=== PATIENT | male | born 1955 | race Caucasian/White ===

== ENCOUNTER → 2020-06-28 14:33 | Outpatient (BNVA) | payer OTHER, SELFPAY | PROVIDERS: Family Provider Family Medicine; Visit Provider Family Medicine | DX: Z20.828 Contact with and (suspected) exposure to other viral communicable diseases (principal) | CPT/HCPCS: 87635 ==

== ENCOUNTER 2021-08-09 14:19 | Outpatient (CLI) | payer OTHER, SELFPAY ==
--- NOTE | 2021-08-09 14:27 | MR_ITS ---
WS: [id number] MRI HEAD WITH CONTRAST WITH ATTENTION TO THE INTERNAL AUDITORY CANALS TECHNIQUE: Sagittal T1, T2 axial, T2 axial flair, axial susceptibility weighted imaging, axial diffus ion weighted images, and coronal T2 images were obtained. Pre and post T1 axial and post T1 coronal i mages. ADC and FSPGR images. Post gadolinium images with attention to the internal auditory canals. A xial fiesta imaging. CLINICAL INFORMATION: SENSORINEURAL HEARING LOSS COMPARISON: CT 2018 FINDINGS: No evidence of restricted diffusion to suggest acute ischemia. Ventricular system and basal cisterns are patent. Mild small vessel changes with moderate parenchymal volume loss. Normal posterior fossa. A few tiny chronic lacunar infarcts in the cerebellum. Normal vascular flow voids at the skull base. No extra-axial fluid collections. No evidence of mass or mass effect. Paranasal sinuses and mastoid air cells well aerated. No hemosiderin on the susceptibly weighted imag es. Proximal 7th and 8th cranial nerves are normal in appearance. Normal trigeminal nerve root entry zones. No evidence of enhancing IAC or CP angle mass. Normal optic chiasm and pituitary infundibulum. Normal cavernous sinuses and Meckel's cave. No abnormal gadolinium enhancement. Normal dural venous sinuses . MR/MR iac's wo/w con* [id number] IMPRESSION: 1. No evidence of restricted diffusion to suggest acute ischemia. 2. No evidence of enhancing IAC or CP angle mass. Normal trigeminal nerve root entry zones. 3. Mastoid air cells are well aerated. Paranasal sinuses are well aerated. 4. Mild small vessel changes with moderate parenchymal volume loss. 5. No hemosiderin on susceptibly weighted images.
== END 2021-08-09 14:20 | disposition home or self-care (01) ==
PROVIDERS: Visit Provider Otolaryngology
DX: H90.3 Sensorineural hearing loss, bilateral (principal); H93.13 Tinnitus, bilateral
CPT/HCPCS: 70553; A9579

== ENCOUNTER 2022-07-11 08:23 | Outpatient (CLI) | payer OTHER, MEDICARE, SELFPAY ==
--- NOTE | 2022-07-11 08:41 | XRR_ITS ---
PROCEDURE INFORMATION: Exam: XR Chest Exam date and time: 07/11/2022 8:52 AM Age: 67 years old Clinical indication: Dyspnea TECHNIQUE: Imaging protocol: Radiologic exam of the chest. Views: 2 views. COMPARISON: CR XR chest 1V [id number] 08/26/2018 3:33 AM FINDINGS: Lungs: Unremarkable. No consolidation. Pleural spaces: Elevation of the right hemidiaphragm. No pleural effusion. No pneumothorax. Heart/Mediastinum: Unremarkable. No cardiomegaly. Bones/joints: Unremarkable. XR/XR chest 2V* [id number] IMPRESSION: No acute findings.
== END 2022-07-11 08:24 | disposition home or self-care (01) ==
LOC: RAD 08:27
PROVIDERS: PCP Family Medicine; Visit Provider Family Medicine
DX: R06.00 Dyspnea, unspecified (principal); E34.9 Endocrine disorder, unspecified; I48.91 Unspecified atrial fibrillation; R51.9 Headache, unspecified
CPT/HCPCS: 71046; 80053; 80061; 84443; 85025; 86140

== ENCOUNTER → 2022-08-08 14:09 | Outpatient (BNVA) | payer OTHER, MEDICARE, SELFPAY | PROVIDERS: PCP Family Medicine; Visit Provider Family Medicine | DX: R73.9 Hyperglycemia, unspecified (principal); R79.82 Elevated C-reactive protein (CRP); E66.9 Obesity, unspecified | CPT/HCPCS: 80048; 83036; 86140 ==

== ENCOUNTER → 2023-06-01 10:08 | Outpatient (BNVA) | payer OTHER, MEDICARE, SELFPAY | PROVIDERS: PCP Family Medicine; Visit Provider Family Medicine | DX: R79.82 Elevated C-reactive protein (CRP) (principal); R51.9 Headache, unspecified; R53.1 Weakness; I95.9 Hypotension, unspecified | CPT/HCPCS: 80053; 83735; 83880; 84443; 85025; 86140 ==

== ENCOUNTER 2023-06-09 17:42 | Emergency (ER) | payer OTHER, MEDICARE, SELFPAY ==
[2023-06-09 17:51] VITALS: BP 111/74; PULSE 95; RESP 16; TEMP 36.8; O2SAT 96; BMI 38.0
--- NOTE | 2023-06-09 18:06 | ECG_ITS ---
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 Measurements Intervals [place] Rate: 77 P: 39 VT: 154 QRS: 15 QRSD: 134 T: 47 QT: 402 QTc: 458 Interpretive Statements SINUS RHYTHM WITH SINUS ARRHYTHMIA INDETERMINATE AXIS RIGHT BUNDLE BRANCH BLOCK [120+ ms QRS DURATION, UPRIGHT V1, 40+ ms S IN I/aVL/V4/V5/V6] Compared to ECG 08/26/2018 02:54:17 Right bundle-branch block now present Atrial fibrillation no longer present Aberrant conduction of supraventricular beat(s) no longer present Ventricular premature complex(es) no longer present Incomplete right bundle-branch block no longer present ST (T wave) deviation no longer present Electronically Signed On 06-10-2023 10:56:01 CDT by Tomás Cerda M.D. [id number]
[2023-06-09 18:33] VITALS: BP 119/69; PULSE 74; RESP 16; O2SAT 98
[2023-06-09] MEDS: ondansetron 2 mg/ML SDV 2 mL 4 MG IVP (19:02)
[2023-06-09] MEDS: ketorolac 30 mg/mL INJ 15 MG IVP (19:06)
[2023-06-09 19:11] LABS: Basophils % 0.3 %; Eosinophils % 0.4 %; Hematocrit 43.4 % (37-53); Lymphocytes # 1.4 10^3/uL (0.8-4.8); Lymphocytes % 20.1 %; Mean Corpuscular HGB Conc 33.4 g/dL (30-55); Mean Corpuscular Hemoglobin 30.5 pg (27-33); Mean Corpuscular Volume 91.2 fl (82-101); Mean Platelet Volume 9.9 fL (7.4-10.4); Monocytes # 0.3 10^3/uL (0.2-0.9); Monocytes % 4.4 %; Neutrophils # 5.24 10^3/uL (1.8-7.7); Neutrophils % 74.4 %; Nucleated Red Blood Cells % 0 %; Platelet Count 220 10^3/cmm (157-399); Red Blood Count 4.76 10^6/uL (3.85-5.65); Red Cell Distribution Width 13.8 % (12.1-15.1); White Blood Count 7.05 10^3/uL (3.29-11.43)
[2023-06-09] MEDS: diphenhydrAMINE 50 mg/mL SDV 1mL 25 MG IVP (19:12)
[2023-06-09] MEDS: sodium chloride 0.9% 1,000 ML 999 ML IV (19:22)
[2023-06-09 19:25] LABS: Alanine Aminotransferase 11 U/L (0-41); Alkaline Phosphatase 86 U/L (40-130); Anion Gap 13.5 (5-19); Aspartate Amino Transferase 11 U/L (0-40); Blood Urea Nitrogen 12 mg/dL (8-23); Calcium 9.3 mg/dL (8.5-10.5); Carbon Dioxide 25 mmol/L (22-29); Chloride 103 mmol/L (98-107); Creatine Phosphokinase 52 U/L (39-308); Globulin 2.5 g/dL (1.3-4.6); Glomerular Filtration Rate 112.5 mL/min (90-130); Glucose 109 mg/dL (65-115); Osmolality Calculated 286 mOsm/kg (285-295); Potassium 3.5 mmol/L (3.5-5.1); Sodium 138 mmol/L (136-145); Total Bilirubin 0.7 mg/dL (0.15-1.2); Total Protein 6.5 g/dL (6.6-8.7)
[2023-06-09] MEDS: dexamethasone 4 mg/mL INJ 8 MG IVP (19:30)
--- NOTE | 2023-06-09 20:10 | ED_ITS ---
HPI - Skin/Abscess/Foreign Bdy General: Chief complaint: Skin/Abscess/Foreign Body Stated complaint: wasp stings Time Seen by Provider: 06/09/23 18:12 Source: patient History of Present Illness: 68-year-old male with a history of atrial fibrillation. He presents with what sounds like a near syncopal episode after being stung by several yellow jackets. He was brought hogging, and got into a yellowjacket nest. He was stung several times in the right upper extremity. He began to feel faint shortly thereafter, and laid on the ground before he fell. He was mildly nauseated. No throat tightness, or chest pain. No facial swelling. He remembers feeling significantly hot and itchy over different parts of his body. Most of his symptoms are gone. He is still mildly nauseated. He has significant swelling to his right upper extremity, particularly of the hand. MD complaint: rash and insect bite/sting Onset (ago): hour(s) Location: RUE Severity: moderate Quality: burning, stabbing, aching and pruritic Associated symptoms: Reports nausea; Deny chills, fever(s) or vomiting Review of Systems Const: Denies: fever(s) or chills Eyes: Denies: change in vision ENMT: Denies: throat pain, uvular edema, odynophagia or hoarseness Card: Denies: chest pain or palpitations Resp: Denies: dyspnea, productive cough or non-productive cough GI: Reports: nausea; Denies: abdominal pain or vomiting Skin/Breast: Reports: rash, pruritus and erythema PFS ED PFSH: Medical History Atrial fibrillation Dyspnea Headache Hypotestosteronemia Obesity Physical Exam Const: COMMON NORMALS: no acute distress GENERAL APPEARANCE: cooperative; not ill appearing and not frail appearing HENMT: COMMON NORMALS: normocephalic, atraumatic and Normal external nose present HEAD & SCALP: normocephalic and atraumatic FACE & SINUS: normal facial exam and face symmetric NOSE: Normal external nose present THROAT: no uvular edema Eye: COMMON NORMALS: Equal, round and reactive pupils present and EOMs intact bilaterally PUPIL: Yes Equal, round and reactive pupils present Neck/C-Spine: GENERAL: Yes trachea midline Chest: CHEST: Yes Symmetrical chest wall rise Resp: COMMON NORMALS: normal respiratory effort, No retractions, No use of accessory muscles and clear to auscultation bilaterally AUSCULTATION: clear to auscultation bilaterally Cardio: COMMON NORMALS: regular rate and regular rhythm RATE: regular rate RHYTHM: regular rhythm GI: COMMON NORMALS: Normal to inspection, nondistended, normoactive bowel sounds present Extremity: NARRATIVE EXTREMITY EXAM: Examination of the right upper extremity reveals significant redness, swelling to the right dorsum of the hand. There is warmth as well. A couple of sting valle are noted. He has some swelling proximally to the dorsum of the forearm a s well. No signs of compartment syndrome. Pulses are intact. Neuro: FAUZIA COMA SCALE: document GCS findings Fauzia coma scale eye opening: Spontaneous [place] coma scale verbal response: Orientated [place] coma scale motor response: Obey commands [place] coma scale total score: 15 SENSORY EXAM: Yes extremities (intact) Psych: COMMON NORMALS: speech normal SPEECH: Yes normal speech Skin: COMMON NORMALS: no rashes or lesions noted GENERAL SKIN EXAM: no rashes or lesions noted Course Vital Signs: Vital signs: Vital Signs Temperature 98.2 F 06/09/23 17:51 Pulse Rate 74 06/09/23 18:33 Respiratory Rate 16 06/09/23 18:33 Blood Pressure 119/69 06/09/23 18:33 Pulse Oximetry 98 06/09/23 18:33 Oxygen Delivery Me thod Room Air 06/09/23 18:33 MDM - Skin/Abscess/Foreign Bdy Medicial Decision Making Patient's vitals are stable. He is given Benadryl, dexamethasone, Zofran, and fluid. He is feeling somewhat better. CBC and BMP are normal. CK is 52. Liver enzymes are normal. He will be allowed home. His , who is an ICU nurse, notes that he frequently gets cellulitis with these types of injuries. He will be placed on doxycycline if redness does not improve in the next 24 hours. Lab Data 06/09/23 18:57 06/09/23 18:57 Laboratory Results WBC 7.05 10^3/uL (3.29-11.43) 06/09/23 18:57 RBC 4.76 10^6/uL (3.85-5.65) 06/09/23 18:57 Hgb 14.50 g/dL (11.27-16.99) 06/09/23 18:57 Hct 43.4 % (37-53) 06/09/23 18:57 MCV 91.2 fl (82-101) 06/09/23 18:57 MCH 30.5 pg (27-33) 06/09/23 18:57 MCHC 33.4 g/dL (30-55) 06/09/23 18:57 RDW 13.8 % (12.1-15.1) 06/09/23 18:57 Plt Count 220 10^3/cmm (157-399) 06/09/23 18:57 MPV 9.9 fL (7.4-10.4) 06/09/23 18:57 Neut % (Auto) 74.4 % 06/09/23 18:57 Lymph % (Auto) 20.1 % 06/09/23 18:57 [place] % (Auto) 4.4 % 06/09/23 18:57 Eos % (Auto) 0.4 % 06/09/23 18:57 Baso % (Auto) 0.3 % 06/09/23 18:57 Neut # (Auto) 5.24 10^3/uL (1.8-7.7) 06/09/23 18:57 Lymph # (Auto) 1.4 10^3/uL (0.8-4.8) 06/09/23 18:57 [place] # (Auto) 0.3 10^3/uL (0.2-0.9) 06/09/23 18:57 Eos # (Auto) 0.0 10^3/uL (0.0-0.8) 06/09/23 18:57 Baso # (Auto) 0.0 10^3/uL (0.0-0.1) 06/09/23 18:57 Nucleated RBC % (auto) 0 % 06/09/23 18:57 Nucleated RBCs # 0.0 /100WBC 06/09/23 18:57 Sodium 138 mmol/L (136-145) 06/09/23 18:57 Potassium 3.5 mmol/L (3.5-5.1) 06/09/23 18:57 Chloride 103 mmol/L (98-107) 06/09/23 18:57 Carbon Dioxide 25 mmol/L (22-29) 06/09/23 18:57 Anion Gap 13.5 (5-19) 06/09/23 18:57 BUN 12 mg/dL (8-23) 06/09/23 18:57 Creatinine 0.7 mg/dL (0.7-1.2) 06/09/23 18:57 GFR Calculation 112.5 mL/min (90-130) 06/09/23 18:57 Glucose 109 mg/dL (65-115) 06/09/23 18:57 Calculated Osmolality 286 mOsm/kg (285-295) 06/09/23 18:57 Calcium 9.3 mg/dL (8.5-10.5) 06/09/23 18:57 Total Bilirubin 0.7 mg/dL (0.15-1.2) 06/09/23 18:57 AST 11 U/L (0-40) 06/09/23 18:57 ALT 11 U/L (0-41) 06/09/23 18:57 Alkaline Phosphatase 86 U/L (40-130) 06/09/23 18:57 Creatine Kinase 52 U/L (39-308) 06/09/23 18:57 Total Protein 6.5 g/dL (6.6-8.7) L 06/09/23 18:57 Albumin 4.0 g/dL (3.5-5.2) 06/09/23 18:57 Globulin 2.5 g/dL (1.3-4.6) 06/09/23 18:57 Discharge Plan Discharge Patient Disposition: Home Clinical Impression: Allergic reaction to insect sting Condition: Stable Prescriptions: New doxycycline hyclate 100 mg tablet 100 mg PO BID 7 Days Qty: 14 0RF No Action diltiazem HCl 30 mg tablet 30 mg PO BID Qty: 60 11RF sertraline 100 mg tablet See Rx Instructions .ROUTE .COMPLEX Qty: 60 0RF Dose Instruction: TAKE 2 TABLETS BY MOUTH EVERY DAY Rx Instructions: TAKE 2 TABLETS BY MOUTH EVERY DAY tadalafil [Cialis] 10 mg tablet 10 mg PO .Q3days PRN (Reason: sexual activity) Qty: 30 11RF Discharge Orders: Discharge ED (Routine); Ordered 06/09/23 Ordered By: Peter Mata Referrals: Domingo Mcclure MD [Primary Care Provider] - 1-3 days Patient Instructions: Insect Bite or Sting (ED), General Allergic Reaction (ED) Activity Restrictions/Additional Instructions: Return for worsening redness, swelling, etc. despite treatment. Watch for fever. Return also for shortness of breath, symptoms of throat closing or hoarseness, other concerning symptoms. Fill your antibiotic if redness does not begin to improve in 24 to 48 hours. Follow-up with your doctor. Coding Level of Care Code ED Display Fabrication Supervisor for Stacy Stanley
== END 2023-06-09 20:33 | disposition home or self-care (01) ==
PROVIDERS: Emergency Provider Emergency Medicine; PCP Family Medicine
DX: T63.461A Toxic effect of venom of wasps, accidental (unintentional), initial encounter (principal)
CPT/HCPCS: 36415; 80053; 82550; 85025; 93005; 96361; 96374; 96375; 99284; J1100; J1200; J1885; J2405; J7030

== ENCOUNTER 2023-11-25 18:14 | Observation (INO) | payer MEDICARE, SELFPAY ==
[2023-11-25] VITALS (68 sets, daily range): BP systolic 100–131; BP diastolic 61–89; PULSE 67–104; RESP 12–27; TEMP 36.4–36.7; O2SAT 88–100; BMI 36.3
--- NOTE | 2023-11-25 18:18 | ECG_ITS ---
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 Measurements Intervals [place] Rate: 174 P: 0 SC: 0 QRS: -77 QRSD: 143 T: 38 QT: 278 QTc: 474 Interpretive Statements ATRIAL FIBRILLATION WITH RAPID VENTRICULAR RESPONSE INDETERMINATE AXIS RIGHT BUNDLE BRANCH BLOCK [120+ ms QRS DURATION, UPRIGHT V1, 40+ ms S IN I/aVL/V4/V5/V6] LEFT ANTERIOR FASCICULAR BLOCK [QRS AXIS <= -45, QR IN I, RS IN II] CRITICAL TEST RESULT INTERPRETATION BASED ON A DEFAULT AGE OF 40 YEARS Compared to ECG 06/09/2023 18:06:04 Left anterior fascicular block now present Sinus rhythm no longer present Sinus arrhythmia no longer present Electronically Signed On 11-25-2023 21:00:15 HOOP RIVETER by Ana Rosa Eastman M.D. [id number]
--- NOTE | 2023-11-25 18:25 | XRR_ITS ---
PROCEDURE INFORMATION: Exam: XR Chest Exam date and time: 11/25/2023 6:59 PM Age: 68 years old Clinical indication: Chest pressure; Patient HX: Chest pain left jaw/shoulder pain; Tachycardia; Afib TECHNIQUE: Imaging protocol: Radiologic exam of the chest. Views: 1 view. COMPARISON: CR XR chest 2V* [id number] 07/11/2022 8:52 AM FINDINGS: Lungs: Subtle streaky opacities at left lung base near the costophrenic sulcus. Pleural spaces: No pleural effusion. No pneumothorax. Heart/Mediastinum: Mild tortuosity of the descending thoracic aorta. Otherwise cardiomediastinal silhouette. Bones/joints: No acute osseous abnormality. XR/XR chest 1V portable [id number] IMPRESSION: Subtle streaky opacities at left lung base near the costophrenic sulcus , indeterminate for atelectasis versus focus of infection/inflammation.
[2023-11-25] MEDS: sodium chloride 0.9% 1,000 ML 999 ML IV (18:47)
[2023-11-25] MEDS: dilTIAZem 5 mg/mL SDV 5 mL 10 MG IVP (18:50)
[2023-11-25 18:53] LABS: Basophils # 0.1 10^3/uL (0.0-0.1); Basophils % 0.6 %; Eosinophils # 0.1 10^3/uL (0.0-0.8); Eosinophils % 0.7 %; Hematocrit 45.2 % (37-53); Lymphocytes % 18.6 %; Mean Corpuscular Hemoglobin 30.5 pg (27-33); Mean Corpuscular Volume 92.4 fl (82-101); Mean Platelet Volume 9.7 fL (7.4-10.4); Monocytes # 0.5 10^3/uL (0.2-0.9); Monocytes % 4.8 %; Neutrophils % 74.9 %; Nucleated Red Blood Cells % 0 %; Platelet Count 217 10^3/cmm (157-399); Red Blood Count 4.89 10^6/uL (3.85-5.65); Red Cell Distribution Width 13.6 % (12.1-15.1); White Blood Count 10.66 10^3/uL (3.29-11.43)
[2023-11-25 19:22] LABS: Troponin(5th) Baseline 11 ng/L (0-15)
[2023-11-25 19:23] LABS: INR 0.99 (0.8-1.2)
[2023-11-25 19:24] LABS: Partial Thromboplastin Time 29.8 SECONDS (23.9-36.7)
[2023-11-25 19:27] LABS: D Dimer 0.41 ug/mLFEU (0-0.59)
[2023-11-25 19:30] LABS: Alanine Aminotransferase 18 U/L (0-41); Albumin Level 4.2 g/dL (3.5-5.2); Alkaline Phosphatase 106 U/L (40-130); Anion Gap 14.7 (5-19); Aspartate Amino Transferase 13 U/L (0-40); Blood Urea Nitrogen 25 mg/dL (8-23); Calcium 9.5 mg/dL (8.5-10.5); Carbon Dioxide 22 mmol/L (22-29); Chloride 101 mmol/L (98-107); Creatine Phosphokinase 106 U/L (39-308); Creatinine Clr Calc Pharmacy 127.5812; Globulin 2.3 g/dL (1.3-4.6); Glomerular Filtration Rate 96.4 mL/min (90-130); Glucose 106 mg/dL (65-115); NT Pro B Type Natriuretic Pept 85 pg/mL (0-125); Osmolality Calculated 283 mOsm/kg (285-295); Potassium 3.7 mmol/L (3.5-5.1); Sodium 134 mmol/L (136-145); Thyroid Stimulating Hormone 1.82 uIU/mL (0.27-4.20); Total Bilirubin 0.6 mg/dL (0.15-1.2); Total Protein 6.5 g/dL (6.6-8.7)
--- NOTE | 2023-11-25 19:47 | PC.NURSE ---
pt ambulated with a steady gait, he did c/o some dizziness directly after standby by resolved after about a minute. provider notified
--- NOTE | 2023-11-25 20:20 | ECG_ITS ---
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 Measurements Intervals [place] Rate: 83 P: 40 ID: 132 QRS: 11 QRSD: 149 T: 42 QT: 396 QTc: 468 Interpretive Statements SINUS RHYTHM INDETERMINATE AXIS RIGHT BUNDLE BRANCH BLOCK [120+ ms QRS DURATION, UPRIGHT V1, 40+ ms S IN I/aVL/V4/V5/V6] Compared to ECG 11/25/2023 18:18:15 Atrial fibrillation no longer present Left anterior fascicular block no longer present Electronically Signed On 11-27-2023 0:45:21 RIDE MECHANIC by Ana Rosa Eastman M.D. [id number]
[2023-11-25 20:22] LABS: Add Urine Microscopic? YES; Bilirubin Urine Neg (Negative); Blood Urine 2+ (Negative); Glucose Urine UA Norm (Normal); Ketones Urine 1+ (Negative); Leukocyte Esterase Urine Negative (Negative); Nitrate Urine Negative (Negative); Protein Urine Trace (Negative); Specific Gravity, Urine 1.025 (1.005-1.030); Urine Appearance Clear (CLEAR); Urine Color Yellow (Yellow); Urobilinogen Urine Neg (Negative); pH Urine 5 (5-7)
[2023-11-25] MEDS: dilTIAZem 100 MG in sodium chloride 0.9% (add-van) 100 ML IV (20:22)
[2023-11-25 20:23] LABS: Bacteria Urine 1+ /hpf; Coarse Granular Casts Urine 0-4 /lpf; Hyaline Casts Urine 0-4 /lpf; Squamous Epithelial Cell Urine 0-4 /hpf (0-5); WBC Urine 0-4 /hpf (0-5)
[2023-11-25] MEDS: sodium chloride 0.9% 1,000 ML 150 ML IV (20:23)
--- NOTE | 2023-11-25 20:57 | PC.NURSE ---
After pt had returned from his walk, he was laying in the bed for approx 10min and had a run of afib with rvr in the 140's. Provider reported to the bond underwriter that pt will have to stay with a cardizem drip at 5mg/hr and not to give the previously ordered bolus. Pt is upset about needing to be admitted as he had plans to ride his motorcycle tomorrow but is compliant, is also ok with this plan. Drip started and pt is tolerating well, bp is soft so vitals are taking frequently and pt being watched closely.
[2023-11-25 21:15] LABS: Troponin 5 2HR 17.35 ng/L (0-15); Troponin 5 2HR Delta 6.35 ABS# (0-10)
--- NOTE | 2023-11-25 22:56 | P.HP_ITS ---
Providers/Chief Complaint 2 Admitting Physician: Rob Strong DO Primary Care Provider: Domingo Mcclure MD Chief Complaint: cp, jaw, left shoulder pain, dizzy History of Present Illness Leno Schroeder is a 68 year old male paroxysmal atrial fibrillation who has not tolerated calcium channel blockade. His blood pressure becomes too low and he develops symptoms. He has been off any diltiazem for approximately 3 months. He is a tried long-acting diltiazem and short acting and is still symptomatic. Today the patient was working on his property and had to wrangle a goat back to the stable with much physical exertion. When he came into the house his who is an RN in our ICU reports that he was diaphoretic. Patient complained of left jaw and left arm pain. He denies shortness of breath or nausea. His gave him diltiazem 30 mg x 1 and he came to the hospital. In the emergency room he was still in atrial fibs with RVR. He was placed on low-dose Cardizem drip at 5 mg an hour and subsequently converted back to normal sinus rhythm. His troponins are 11 and 17 at 2 hours with a delta of 7. And otherwise his laboratory studies are within normal limits, including a TSH. Reviewed with patient there is does seem to be relationship for when the patient is on a stimulant to induce the A-fib. In the past it happened after energy drinks and now he is recently started caffeine. And he is smoking a pack and half of cigarettes a day which she just picked up a few years ago again Review of Systems 2 Const: Reports: change in weight (Intentional weight loss of 90 pounds over the last year or 2); Denies: fever(s) or chills Eyes: Denies: change in vision ENMT: Denies: throat pain or nasal congestion Card: Reports: palpitations (He is cognizant of his PVCs even.) and irregular heart rhythm; Denies: chest pain Resp: Denies: dyspnea or productive cough GI: Denies: abdominal pain, nausea, vomiting or change in stool character : Denies: difficulty urinating or dysuria Musc: Denies: back pain or extremity pain Skin/Breast: Denies: rash or lesions Neuro: Denies: headache(s) or dizziness Psych: Denies: anxiety or depression Justin/Lymph: Denies: easy bruising or easy bleeding Medications/Allergies Home Medications Medication Instructions Recorded Confirmed Last Taken Type diltiazem HCl 30 mg tablet 30 mg PO BID #60 tabs 01/16/23 11/18/23 Unknown Rx tadalafil 10 mg tablet (Cialis) 10 mg PO .Q3days PRN sexual 04/11/23 11/18/23 Unknown Rx activity #30 tabs sertraline 100 mg tablet See Rx Instructions .Route 10/11/23 11/18/23 Unknown Rx .COMPLEX #60 tabs Allergies Allergy/AdvReac Type Severity Reaction Status Date / Time brown recluse spiders Allergy ALGY-Redness Uncoded 11/25/23 18:26 of Skin PFSH Acute 2 PFSH: Medical History Obesity Dyspnea Headache Hypotestosteronemia Atrial fibrillation Social History Smoking and tobacco/nicotine status: current every day tobacco/nicotine user Quit status (tobacco/nicotine): considering quitting Second hand smoke exposure: Yes Household members: spouse Housing: House Vitals/I&O/Wt Last Vital Signs Temp 98.0 F 11/25/23 18:23 Pulse 76 11/25/23 22:00 Resp 20 H 11/25/23 22:00 BP 113/64 11/25/23 22:00 Pulse Ox 92 11/25/23 22:00 O2 Del Method Nasal Cannula 11/25/23 22:00 O2 Flow Rate 3 11/25/23 22:00 11/25/23 11/25/23 11/25/23 06:59 14:59 22:59 Intake Total 1000 / 1000 Balance 1000 / 1000 Weight last 48 hrs Weight 128.367 kg Physical Exam 2 Narrative: Tall obese white male in no acute distress at time. He appears well-nourished and well-hydrated. Neuro. AO to PP TS. Nonfocal exam HEENT: NC/AT. PERRLA/EOMI. Mucous membranes are moist and a bit erythematous. Poor dentition in the lower jaw upper dentures present Neck: Supple no JVD carotid bruits or lymphadenopathy Heart: Regular rate and rhythm distant heart sounds no obvious murmur auscultated Lungs: Diminished breath sounds with prolonged expiration no wheezing even with forced expiratory breaths Abdomen obese soft nontender nondistended positive bowel sounds no hepatosplenomegaly Extremities: No clubbing cyanosis or edema Psych: Mood and affect appropriate Skin: No rash or lesions Back no obvious scoliosis or kyphosis Data 11/25/23 18:35 11/25/23 18:35 EKG 1: My Interpretation: A-fib with RVR right bundle branch block EKG computer-generated impression: Same EKG 2: My Interpretation: Normal sinus rhythm no further atrial fibrillation. R BBB EKG computer-generated impression: Same A&P Assessment and plan (1) Atrial fibrillation with rapid ventricular response: (2) Paroxysmal atrial fibrillation: (3) Obesity: Qualifiers: Obesity type: due to excess calories Obesity classification: adult class 2 (BMI 35 - 39.9) Serious obesity comorbidity presence: unspecified whether serious comorbidity present Body mass index: BMI 36.0-36.9 Qualified Code(s): E66.09 - Other obesity due to excess calories; Z68.36 - Body mass index [BMI] 36.0-36.9, adult (4) Smoker: (5) Anginal equivalent: Plan * Patient will be placed in observation tonight. Since the patient has already cardioverted plans for discharge will be initiated. * The low-dose Cardizem drip will be discontinued in the director of outside sales hours. * Much consideration has been given to the course of action at this time.. Patient clearly cannot tolerate calcium channel blockers and therefore will not tolerate beta-blockade. I felt the best course of action would either be starting digoxin or amiodarone. 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 We discussed those toxicities with significant bradycardia being a concern. Amiodarone is also an option however amiodarone's toxicities can be permanent. We decided together to try digoxin at this point. * It is also of utmost importance to proceed with a stress test in a controlled environment. There is concerned that basically patient failed a stress test today with him displaying anginal equivalent symptoms with exertion. The patient's would prefer utilizing Dr. Cerda and he will be back on December 02. * Patient and have been educated not on exertion subsequent to discharge. This includes no wrangling goats no motorcycle riding and no excessive Caffeine or Exercise or Sexual Activity. * Patient and have been counseled to quit smoking. Both of them have had a scare tonight and patient himself is very likely to quit smoking after this. The was strongly encouraged to join him in this endeavor. He has been able to quit smoking for extended periods of times in the past and it is believed that he will be able to do so again. * Check 6-hour troponin if elevated will need to keep in the hospital and perform stress test in house. Attestations 2 Medical Necessity Statement*: At this time patient will be admitted under observation and will not require 2 midnight stay as above. Coding Level of Care Code Acute Code for g Fwd Diagnoses Atrial fibrillation with rapid ventricular response I48.91 Paroxysmal atrial fibrillation I48.0 Class 2 obesity due to excess calories with body mass index (BMI) of 36.0 to 36.9 in adult, unspecified whether serious comorbidity present E66.09; Z68.36 Obesity type: due to excess calories Obesity classification: adult class 2 (BMI 35 - 39.9) Serious obesity comorbidity presence: unspecified whether serious comorbidity present Body mass index: BMI 36.0-36.9 Smoker F17.200 Anginal equivalent I20.89
[2023-11-25] MEDS: enoxaparin 40 mg/0.4 mL Syringe SUBCUT (23:41)
[2023-11-25] MEDS: sodium chloride 0.9% 1,000 ML 75 ML IV (23:42)
[2023-11-26] VITALS (89 sets, daily range): BP systolic 81–136; BP diastolic 45–95; PULSE 54–84; RESP 14–28; TEMP 36.6; O2SAT 80–100
[2023-11-26 01:19] LABS: Troponin 5 6HR 15.87 ng/L (0-15); Troponin 5 6HR Delta 4.87 ng/L (0-12)
--- NOTE | 2023-11-26 04:04 | ED_ITS ---
HPI - Chest Pain 2 General: Chief Complaint: Chest Pain Stated Complaint: cp, jaw, left shoulder pain, dizzy Time Seen by Provider: 11/25/23 18:23 History of Present Illness: 68-year-old male patient with a known hi story of atrial fibrillation. He presents with chest pain jaw pain and dizziness. He has some shortness of breath and generalized weakness as well. He was found to have a heart rate in the 170s in triage. Associated symptoms: Reports dyspnea, nausea and palpitations; Deny abdominal pain, fever(s) or vomiting Review of Systems 2 Const: Denies: fever(s) or chills ENMT: Denies: throat pain Card: Reports: chest pain, palpitations and irregular heart rhythm Resp: Reports: dyspnea; Denies: productive cough or non-productive cough GI: Reports: nausea; Denies: abdominal pain or vomiting Musc: Reports: neck pain Neuro: Reports: dizziness; Denies: headache(s) PFSH ED 2 PFSH: Medical History Obesity Dyspnea Headache Hypotestosteronemia Atrial fibrillation Social History Smoking and tobacco/nicotine status: current every day tobacco/nicotine user Quit status (tobacco/nicotine): considering quitting Second hand smoke exposure: Yes Household members: spouse Housing: House Physical Exam 2 Const: GENERAL APPEARANCE: cooperative and ill appearing (mildly); not frail appearing HENMT: COMMON NORMALS: normocephalic, atraumatic and Normal external nose present HEAD & SCALP: normocephalic and atraumatic FACE & SINUS: normal facial exam and face symmetric NOSE: Normal external nose present Eye: COMMON NORMALS: Equal, round and reactive pupils present and EOMs intact bilaterally PUPIL: Yes Equal, round and reactive pupils present Neck/C-Spine: GENERAL: Yes trachea midline Chest: CHEST: Yes Symmetrical chest wall rise Resp: COMMON NORMALS: normal respiratory effort, No retractions, No use of accessory muscles and clear to auscultation bilaterally AUSCULTATION: clear to auscultation bilaterally Cardio: RATE: tachycardic RHYTHM: abnormal rhythm irregularly irregular GI: COMMON NORMALS: Normal to inspection, nondistended, normoactive bowel sounds present Extremity: COMMON NORMALS: no pedal edema Neuro: DIO COMA SCALE: document GCS findings Dio coma scale eye opening: Spontaneous [place] coma scale verbal response: Orientated [place] coma scale motor response: Obey commands [place] coma scale total score: 15 S ENSORY EXAM: Yes extremities (intact) Psych: COMMON NORMALS: speech normal ATTITUDE: Yes calm SPEECH: Yes normal speech Skin: COMMON NORMALS: no rashes or lesions noted GENERAL SKIN EXAM: no rashes or lesions noted Course 2 Vital Signs: Vital signs: Vital Signs Temperature 97.8 F 11/26/23 10:40 Pulse Rate 61 11/26/23 10:40 Respiratory Rate 19 H 11/26/23 10:40 Blood Pressure 121/74 11/26/23 10:45 Pulse Oximetry 90 11/26/23 10:40 Oxygen Delivery Me thod Nasal Cannula 11/25/23 23:02 Oxygen Flow Rate 3 11/25/23 22:45 MDM - Chest Pain Medical Decision Making Mr. Schroeder had a rate that was somewhat controlled in the ER, but kept having spells of breaking through with heart rates in the 160s. Diltiazem was given 2 separate times. With these, we battled mild hypotension requiring fluid bolus. Finally, he was placed on a drip to better control the heart rate with maintenance fluid for bp support. CXR shows bibalisar atelectasis. BUN is 25, BMP otherwise not remarkable. BNP normal. Delta trop at 2h is 6. He will be admitted on diltiazem gtt. Hospitalist has seen the patient in the ER. Lab Data 11/25/23 18:35 11/25/23 18:35 Radiology Impressions Chest X-Ray 11/25/23 18:25 IMPRESSION: Subtle streaky opacities at left lung base near the costophrenic sulcus , indeterminate for atelectasis versus focus of infection/inflammation. Laboratory Results WBC 10.66 10^3/uL (3.29-11.43) 11/25/23 18:35 RBC 4.89 10^6/uL (3.85-5.65) 11/25/23 18:35 Hgb 14.90 g/dL (11.27-16.99) 11/25/23 18:35 Hct 45.2 % (37-53) 11/25/23 18:35 MCV 92.4 fl (82-101) 11/25/23 18:35 MCH 30.5 pg (27-33) 11/25/23 18:35 MCHC 33.0 g/dL (30-55) 11/25/23 18:35 RDW 13.6 % (12.1-15.1) 11/25/23 18:35 Plt Count 217 10^3/cmm (157-399) 11/25/23 18:35 MPV 9.7 fL (7.4-10.4) 11/25/23 18:35 Neut % (Auto) 74.9 % 11/25/23 18:35 Lymph % (Auto) 18.6 % 11/25/23 18:35 [place] % (Auto) 4.8 % 11/25/23 18:35 Eos % (Auto) 0.7 % 11/25/23 18:35 Baso % (Auto) 0.6 % 11/25/23 18:35 Neut # (Auto) 8.00 10^3/uL (1.8-7.7) H 11/25/23 18:35 Lymph # (Auto) 2.0 10^3/uL (0.8-4.8) 11/25/23 18:35 [place] # (Auto) 0.5 10^3/uL (0.2-0.9) 11/25/23 18:35 Eos # (Auto) 0.1 10^3/uL (0.0-0.8) 11/25/23 18:35 Baso # (Auto) 0.1 10^3/uL (0.0-0.1) 11/25/23 18:35 Nucleated RBC % (auto) 0 % 11/25/23 18:35 Nucleated RBCs # 0.0 /100WBC 11/25/23 18:35 PT 13.40 SECONDS (12.1-14.9) 11/25/23 18:35 INR 0.99 (0.8-1.2) 11/25/23 18:35 APTT 29.8 SECONDS (23.9-36.7) 11/25/23 18:35 D-Dimer 0.41 ug/mLFEU (0-0.59) 11/25/23 18:35 Sodium 134 mmol/L (136-145) L 11/25/23 18:35 Potassium 3.7 mmol/L (3.5-5.1) 11/25/23 18:35 Chloride 101 mmol/L (98-107) 11/25/23 18:35 Carbon Dioxide 22 mmol/L (22-29) 11/25/23 18:35 Anion Gap 14.7 (5-19) 11/25/23 18:35 BUN 25 mg/dL (8-23) H 11/25/23 18:35 Creatinine 0.8 mg/dL (0.7-1.2) 11/25/23 18:35 GFR Calculation 96.4 mL/min (90-130) 11/25/23 18:35 Glucose 106 mg/dL (65-115) 11/25/23 18:35 Calculated Osmolality 283 mOsm/kg (285-295) L 11/25/23 18:35 Calcium 9.5 mg/dL (8.5-10.5) 11/25/23 18:35 Magnesium 2.0 mg/dL (1.7-2.3) 11/25/23 18:35 Total Bilirubin 0.6 mg/dL (0.15-1.2) 11/25/23 18:35 AST 13 U/L (0-40) 11/25/23 18:35 ALT 18 U/L (0-41) 11/25/23 18:35 Alkaline Phosphatase 106 U/L (40-130) 11/25/23 18:35 Creatine Kinase 106 U/L (39-308) 11/25/23 18:35 Troponin T Baseline 11 ng/L (0-15) 11/25/23 18:35 Troponin T 120 Minute 17.35 ng/L (0-15) H 11/25/23 20:40 Delta Troponin T 6.35 ABS# (0-10) 11/25/23 20:40 NT-Pro-B Natriuret Pep 85 pg/mL (0-125) 11/25/23 18:35 Total Protein 6.5 g/dL (6.6-8.7) L 11/25/23 18:35 Albumin 4.2 g/dL (3.5-5.2) 11/25/23 18:35 Globulin 2.3 g/dL (1.3-4.6) 11/25/23 18:35 TSH 1.82 uIU/mL (0.27-4.20) 11/25/23 18:35 Urine Color Yellow (Yellow) 11/25/23 19:43 Urine Appearance Clear (CLEAR) 11/25/23 19:43 Urine pH 5 (5-7) 11/25/23 19:43 Ur Specific [place] 1.025 (1.005-1.030) 11/25/23 19:43 Urine Protein Trace (Negative) 11/25/23 19:43 Urine Glucose (UA) Norm (Normal) 11/25/23 19:43 Urine Ketones 1+ (Negative) H 11/25/23 19:43 Urine Blood 2+ (Negative) H 11/25/23 19:43 Urine Nitrate Negative (Negative) 11/25/23 19:43 Urine Bilirubin Neg (Negative) 11/25/23 19:43 Urine Urobilinogen Neg mg/dL (Negative) 11/25/23 19:43 Ur Leukocyte Esterase Negative (Negative) 11/25/23 19:43 Urine RBC 5-10 /hpf (0-2) H 11/25/23 19:43 Urine WBC 0-4 /hpf (0-5) H 11/25/23 19:43 Ur Squamous Epith Cells 0-4 /hpf (0-5) H 11/25/23 19:43 Amorphous Sediment Not Reportable 11/25/23 19:43 Urine Bacteria 1+ /hpf (NONE) H 11/25/23 19:43 Hyaline Casts 0-4 /lpf H 11/25/23 19:43 Coarse Granular Casts 0-4 /lpf H 11/25/23 19:43 All radiology interpretation(s) finalized by discharge Critical Care Time 2 Critical Care Time: Critical Care Time: Yes Total Critical Care Time: 35 Attestation: This case had a high probability of a clinically significant, sudden, or life threatening deterioration of this patient's condition which required my full and direct attention, intervention and personal management. Time is independent of any procedures performed. Discharge Plan Discharge Patient Disposition: Admitted As Inpatient Admit Provider: Rob Strong Clinical Impression: Atrial fibrillation with rapid ventricular response, Hypotension Condition: Fair Discharge Diet: Cardiac Discharge Activity: Increase activity as tolerated Coding Level of Care Code ED Sap Director for Stacy Stanley
--- NOTE | 2023-11-26 07:25 | USCV_ITS ---
Leno Schroeder Age: 68 Gender: M : 1955 Exam Date: 11/26/2023 09:07 Ordering Phys: Wood Kirkpatrick MD Technologist: [place] [facility] [place]: afib, arrythmia, chf BP: 119 / 65 HR: 0 Rhythm: Sinus Technical Quality: Adequate MEASUREMENTS (Male / Female) Normal Values 2D ECHO LV Diastolic Diameter PLAX 4.4 cm 4.2 - 5.9 / 3.9 - 5.3 cm IVS Diastolic Thickness 1.5 cm 0.6 - 1.0 / 0.6 - 0.9 cm IVS Systolic Thickness 1.7 cm LVPW Diastolic Thickness 1.3 cm 0.6 - 1.0 / 0.6 - 0.9 cm LVPW Systolic Thickness 2.2 cm LVOT Diameter 2.0 cm LV Ejection Fraction 2D Teich 62.2 % LV Ejection Fraction MOD 2C 41.0 % LV Ejection Fraction 2C AL 0.0 % LA Diameter 3.4 cm IVC Diameter 1.8 cm M-MODE LA Ao Ratio MM 1.2 AV Cusp Separation MM 2.7 cm DOPPLER AV Peak Velocity 179.0 cm/s LVOT Peak Velocity 109.0 cm/s AV Area Cont Eq vti 2.1 cm squared AV Area Cont Eq pk 2.0 cm squared MV Area PHT 4.7 cm squared Mitral E to A Ratio 1.0 TR Peak Velocity 243.0 cm/s TR Peak Gradient 23.6 mmHg Right Atrial Pressure 3.0 mmHg Pulmonary Artery Systolic Pressu 26.6 mmHg PV Peak Velocity 107.0 cm/s FINDINGS Left Ventricle Left ventricle is normal in size. LV systolic function is normal with EF of 55 to 60%. No regional wall Grade 1 diastolic dysfunction Right Ventricle Normal in size and function Right Atrium Normal in size Left Atrium Normal in size Mitral Valve Moderate mitral annular calcification. Mild mitral regurgitation. Aortic Valve Structurally normal aortic valve. No significant stenosis or regurgitation. Tricuspid Valve Mild tricuspid regurgitation. Pulmonary artery systolic pressure is normal. Pulmonic Valve Not well visualized Pericardium Normal Aorta Normal in size IVC Appears to be normal CONCLUSIONS LV systolic function is normal with EF of 55 to 60%. Mild mitral regurgitation Mild tricuspid regurgitation No comparison studies are available. Chirag Burciaga MD (Electronically Signed) Final Date: 26 November 2023 16:44 S
[2023-11-26] MEDS: sodium chloride 0.9% 1,000 ML 75 ML IV (07:29)
[2023-11-26] MEDS: aspirin 81 mg EC Tablet PO (08:44)
[2023-11-26] MEDS: digoxin 125 mcg Tablet PO (08:45)
--- NOTE | 2023-11-26 08:47 | PC.NURSE ---
Dr Kirkpatrick notified of pt's HR consistently in the 50's throughout the night and low 60's this shift. Clarified that Digoxin should still be administered.
--- NOTE | 2023-11-26 09:42 | PM.DCS ---
Discharge Providers Date of Admission: 11/25/23 23:19 Date of Discharge: November 26, 2023 Attending Provider at Admission: Rob Strong DO Attending Provider at Discharge: Wood Kirkpatrick MD Primary Care Provider: Dominog Mcclure MD Diagnoses at Discharge Discharge Diagnosis (1) Atrial fibrillation with rapid ventricular response: Status: Acute (2) Paroxysmal atrial fibrillation: Status: Acute (3) Obesity: Status: Acute Qualifiers: Obesity type: due to excess calories Obesity classification: adult class 2 (BMI 35 - 39.9) Serious obesity comorbidity presence: unspecified whether serious comorbidity present Body mass index: BMI 36.0-36.9 Qualified Code(s): E66.09 - Other obesity due to excess calories; Z68.36 - Body mass index [BMI] 36.0-36.9, adult (4) Smoker: Status: Acute (5) Anginal equivalent: Status: Acute Reason for Visit Reason for Visit: cp, jaw, left shoulder pain, dizzy Hospital Course Hospital Course Leno is a 68-year-old white male with history of paroxysmal atrial fibrillation. He was on Cardizem, blood pressure has been low enough he has not been tolerating this lately and stopped it altogether 2 to 3 months ago. He reports he rarely has an episode. He does have occasional palpitations, his believes are occasional PVCs. Yesterday when clinic go into the bar he started sweating and having discomfort into his jaw and arm. Heart rate was found to be in the 170s. giving the Cardizem 30 mg p.o. and brought to the emergency department. He was found to be in A-fib with RVR with a heart rate of around 174 on initial EKG. Nonspecific ST-T wave changes were noted, as well as right bundle branch block. He was initiated on a Cardizem drip, and subsequently converted to sinus rhythm. Blood pressures were low when he was in A-fib with RVR and shortly after. This morning he reports nothing but a little bit of left arm discomfort, but is persistent and consistent with him working hard yesterday according to the patient. Troponins did not show a significant trend. Preliminary echocardiogram demonstrated preserved EF, final pending. TSH, potassium, magnesium all within normal limits. We discussed the risks and benefits of anticoagulation, and elected at this time to place him on just aspirin 325 mg daily as his [id number] score currently is 1. We discussed the need for nuclear stress testing as he had jaw discomfort during the episode and he will get this within the next 1 week. Will have him follow-up with his primary care provider as well as cardiology. He has not been tolerant of his digoxin secondary to lower blood pressures, so he was placed on digoxin 0.125 mg p.o. daily. Risks and benefits discussed. He and his were given opportunity ask questions and agreed with the plan. He is to return for any concerns. He is to stop tobacco. No use of sildenafil currently. Light activity only until nuclear stress test performed and results known. He also had a very small amount of red blood cells, 5-10 in his urinalysis. Recommend follow-up with his primary care provider regarding this, and whether further evaluation should occur. Physical Exam Narrative: General exam no distress Neck supple Cardiovascular regular rate and rhythm, no murmur Lungs clear Abdomen soft Extremities no cyanosis clubbing or edema Discharge Data Studies Completed and Pending Completed Studies During Hospitalization Category Date Time Status XR chest 1V portable [id number] Stat Exams 11/25/23 18:25 Completed Pending at discharge Category Date Time Status CV. echo complete* [id number] Routine Ultrasound 11/26/23 07:25 Ordered Radiology Impressions Chest X-Ray 11/25/23 18:25 IMPRESSION: Subtle streaky opacities at left lung base near the costophrenic sulcus , indeterminate for atelectasis versus focus of infection/inflammation. Laboratory Results WBC 10.66 10^3/uL (3.29-11.43) 11/25/23 18:35 RBC 4.89 10^6/uL (3.85-5.65) 11/25/23 18:35 Hgb 14.90 g/dL (11.27-16.99) 11/25/23 18:35 Hct 45.2 % (37-53) 11/25/23 18:35 MCV 92.4 fl (82-101) 11/25/23 18:35 MCH 30.5 pg (27-33) 11/25/23 18:35 MCHC 33.0 g/dL (30-55) 11/25/23 18:35 RDW 13.6 % (12.1-15.1) 11/25/23 18:35 Plt Count 217 10^3/cmm (157-399) 11/25/23 18:35 MPV 9.7 fL (7.4-10.4) 11/25/23 18:35 Neut % (Auto) 74.9 % 11/25/23 18:35 Lymph % (Auto) 18.6 % 11/25/23 18:35 [place] % (Auto) 4.8 % 11/25/23 18:35 Eos % (Auto) 0.7 % 11/25/23 18:35 Baso % (Auto) 0.6 % 11/25/23 18:35 Neut # (Auto) 8.00 10^3/uL (1.8-7.7) H 11/25/23 18:35 Lymph # (Auto) 2.0 10^3/uL (0.8-4.8) 11/25/23 18:35 [place] # (Auto) 0.5 10^3/uL (0.2-0.9) 11/25/23 18:35 Eos # (Auto) 0.1 10^3/uL (0.0-0.8) 11/25/23 18:35 Baso # (Auto) 0.1 10^3/uL (0.0-0.1) 11/25/23 18:35 Nucleated RBC % (auto) 0 % 11/25/23 18:35 Nucleated RBCs # 0.0 /100WBC 11/25/23 18:35 PT 13.40 SECONDS (12.1-14.9) 11/25/23 18:35 INR 0.99 (0.8-1.2) 11/25/23 18:35 APTT 29.8 SECONDS (23.9-36.7) 11/25/23 18:35 D-Dimer 0.41 ug/mLFEU (0-0.59) 11/25/23 18:35 Sodium 134 mmol/L (136-145) L 11/25/23 18:35 Potassium 3.7 mmol/L (3.5-5.1) 11/25/23 18:35 Chloride 101 mmol/L (98-107) 11/25/23 18:35 Carbon Dioxide 22 mmol/L (22-29) 11/25/23 18:35 Anion Gap 14.7 (5-19) 11/25/23 18:35 BUN 25 mg/dL (8-23) H 11/25/23 18:35 Creatinine 0.8 mg/dL (0.7-1.2) 11/25/23 18:35 GFR Calculation 96.4 mL/min (90-130) 11/25/23 18:35 Glucose 106 mg/dL (65-115) 11/25/23 18:35 Calculated Osmolality 283 mOsm/kg (285-295) L 11/25/23 18:35 Calcium 9.5 mg/dL (8.5-10.5) 11/25/23 18:35 Magnesium 2.0 mg/dL (1.7-2.3) 11/25/23 18:35 Total Bilirubin 0.6 mg/dL (0.15-1.2) 11/25/23 18:35 AST 13 U/L (0-40) 11/25/23 18:35 ALT 18 U/L (0-41) 11/25/23 18:35 Alkaline Phosphatase 106 U/L (40-130) 11/25/23 18:35 Creatine Kinase 106 U/L (39-308) 11/25/23 18:35 Troponin T Baseline 11 ng/L (0-15) 11/25/23 18:35 Troponin T 120 Minute 17.35 ng/L (0-15) H 11/25/23 20:40 Delta Troponin T 6.35 ABS# (0-10) 11/25/23 20:40 Troponin T Hi Sens 6Hr 15.87 ng/L (0-15) H 11/26/23 00:39 Troponin T Hi Sens 6Hr Delta 4.87 ng/L (0-12) 11/26/23 00:39 NT-Pro-B Natriuret Pep 85 pg/mL (0-125) 11/25/23 18:35 Total Protein 6.5 g/dL (6.6-8.7) L 11/25/23 18:35 Albumin 4.2 g/dL (3.5-5.2) 11/25/23 18:35 Globulin 2.3 g/dL (1.3-4.6) 11/25/23 18:35 TSH 1.82 uIU/mL (0.27-4.20) 11/25/23 18:35 Urine Color Yellow (Yellow) 11/25/23 19:43 Urine Appearance Clear (CLEAR) 11/25/23 19:43 Urine pH 5 (5-7) 11/25/23 19:43 Ur Specific [place] 1.025 (1.005-1.030) 11/25/23 19:43 Urine Protein Trace (Negative) 11/25/23 19:43 Urine Glucose (UA) Norm (Normal) 11/25/23 19:43 Urine Ketones 1+ (Negative) H 11/25/23 19:43 Urine Blood 2+ (Negative) H 11/25/23 19:43 Urine Nitrate Negative (Negative) 11/25/23 19:43 Urine Bilirubin Neg (Negative) 11/25/23 19:43 Urine Urobilinogen Neg mg/dL (Negative) 11/25/23 19:43 Ur Leukocyte Esterase Negative (Negative) 11/25/23 19:43 Urine RBC 5-10 /hpf (0-2) H 11/25/23 19:43 Urine WBC 0-4 /hpf (0-5) H 11/25/23 19:43 Ur Squamous Epith Cells 0-4 /hpf (0-5) H 11/25/23 19:43 Amorphous Sediment Not Reportable 11/25/23 19:43 Urine Bacteria 1+ /hpf (NONE) H 11/25/23 19:43 Hyaline Casts 0-4 /lpf H 11/25/23 19:43 Coarse Granular Casts 0-4 /lpf H 11/25/23 19:43 Vitals Last Vital Signs Temp 97.8 F 11/26/23 08:00 Pulse 71 11/26/23 08:45 Resp 16 11/26/23 08:30 BP 96/58 11/26/23 08:30 Pulse Ox 87 L 11/26/23 08:30 O2 Del Method Nasal Cannula 11/25/23 23:02 O2 Flow Rate 3 11/25/23 22:45 Discharge Plan Discharge Patient Disposition: Home Condition: Stable Prescriptions: New digoxin 125 mcg (0.125 mg) Tablet 125 mcg PO DAILY Qty: 30 0RF aspirin 325 mg capsule 325 mg PO DAILY Qty: 30 0RF Continued sertraline 100 mg tablet See Rx Instructions .ROUTE .COMPLEX Qty: 60 11RF Dose Instruction: TAKE 2 TABLETS BY MOUTH EVERY DAY Rx Instructions: TAKE 2 TABLETS BY MOUTH EVERY DAY Discontinued diltiazem HCl 30 mg tablet 30 mg PO BID Qty: 60 11RF tadalafil [Cialis] 10 mg tablet 10 mg PO .Q3days PRN (Reason: sexual activity) Qty: 30 11RF Discharge Orders: Discharge Order (Routine); Ordered 11/26/23 Ordered By: Wood Kirkpatrick Other Ambulatory Orders: NM armida perf SPECT r/s* [id number] (Routine) Timeframe: 1 Week Facility: [facility] - Location: Radiology Ordered By: Wood Kirkpatrick Referrals: Tomás Cerda MD [Physician] - 7-10 days Domingo Mcclure MD [Primary Care Provider] - 4-7 days Discharge Diet: Cardiac Discharge Activity: Increase activity as tolerated Patient Instructions: Opioid Safety Activity Restrictions/Additional Instructions: Take all medicine as prescribed. Light activity only until nuclear stress test and follow-up. Follow-up with cardiology. Discharge Attestations Time Spent in Discharge Care*: greater than 30 min Quality Metrics Clinical Quality Measures [ No reported AMI, CVA or VTE this stay] Coding Level of Care Code 75442 Total time (in minutes) for Discharge: 38 Diagnoses Atrial fibrillation with rapid ventricular response I48.91 Paroxysmal atrial fibrillation I48.0 Class 2 obesity due to excess calories with body mass index (BMI) of 36.0 to 36.9 in adult, unspecified whether serious comorbidity present E66.09; Z68.36 Obesity type: due to excess calories Obesity classification: adult class 2 (BMI 35 - 39.9) Serious obesity comorbidity presence: unspecified whether serious comorbidity present Body mass index: BMI 36.0-36.9 Smoker F17.200 Anginal equivalent I20.89
== END 2023-11-26 10:30 | disposition home or self-care (01) ==
LOC: ER 18:23 → ICU 22:22
PROVIDERS: Admitting Provider Internal Medicine; Emergency Provider Emergency Medicine; PCP Family Medicine; Visit Provider Internal Medicine
DX: I48.0 Paroxysmal atrial fibrillation (principal); E66.09 Other obesity due to excess calories; Z68.36 Body mass index [BMI] 36.0-36.9, adult; I20.89 Other forms of angina pectoris; F17.210 Nicotine dependence, cigarettes, uncomplicated; I95.9 Hypotension, unspecified
CPT/HCPCS: 36415; 71045; 80053; 81001; 82550; 83735; 83880; 84443; 84484; 85025; 85378; 85610; 85730; 93005; 93306; 96361; 96365; 96372; 96375; 96376; 99291; G0378; J1650; J3490; J7030

== ENCOUNTER 2023-11-28 07:18 | Outpatient (CLI) | payer MEDICARE, SELFPAY ==
[2023-11-28 07:39] VITALS: BMI 36.1
--- NOTE | 2023-11-28 07:39 | PC.NURSE ---
Order Clarification Ambulatory order placed by Dr. Bob Kirkpatrick for nuclear stress test. Dr. Kirkpatrick contacted via phone for clarification of which mibi stress test to be performed. Received verbal orders for Lexiscan Mibi stress test.
--- NOTE | 2023-11-28 07:39 | ECG_ITS ---
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 Interpretive Statements NAME OF STUDY: LEXISCAN SESTAMIBI STRESS TEST INDICATION: [CP/A Fib, ] Procedure: At the baseline, the blood pressure was 192/97 mmHg with a heart rate of 60 bpm. The electrocardiogram showed sinus rhythm, right bundle branch block with normal ST and T's. The Lexiscan was infused over a period of 20 seconds. A total of 0.4 mg of Lexiscan was infused. The stress phase was continued for a total of 5 minutes. Heart rate was at the end of stress phase was 73 bpm and a blood pressure of 111/72 mmHg. The EKG at the peak infusion revealed normal sinus rhythm with no significant ST-T wave changes. Sestamibi was injected 20 seconds after the Lexiscan infusion. Blood pressure at the end of recovery phase was 109/67 mmHg with a heart rate of 74 bpm. Conclusion: 1. Normal EKG response to Lexiscan infusion 2. No Lexiscan induced chest pain or cardiac arrhythmia. 3. Normal blood pressure and heart rate response. 4. Sestamibi/sestamibi perfusion scan pending; see separate report. Electronically Signed On 12-13-2023 10:21:53 CDT by Chirag Burciaga M.D. [id number]
--- NOTE | 2023-11-28 07:40 | NMCV_ITS ---
NM armida perf SPECT r/s* [id number] Leno Schroeder Age: 68 Gender: M : 1955 Exam Date: 11/28/2023 08:12 Ordering Phys: Wood Kirkpatrick MD Technologist: KENZIE Wells Exam Location: [facility] Indications: CHEST PAIN STRESS TEST Please [facility] IMAGE PROTOCOL Rest/Stress 1 Lexiscan Day Radiopharmaceutical Dose (mCi) Administration Site Administered by Rest: Tc-99m 10.7 IV KENZIE Evans Sestamibi Stress:Tc-99m 33.0 IV KENZIE Evans Sestamibi Rest: 28-Nov-2023 60 Discovery 630 Stress: 28-Nov-2023 30 Discovery 630 0.4mg Lexiscan. Images obtained in supine and prone position. SPECT RESULTS Technical Quality: Excellent Raw Data Analysis: Normal Image Corrections: No attenuation or motion correction applied Summed Stress Score: 1 Summed Rest Score: 2 Summed Difference Score: 1 PERFUSION FINDINGS Small area of equivocal reversible perfusion defect noted in the inferolateral wall. This represents small area of ischemia in the left circumflex artery territory vs attenuation artifact. FUNCTIONAL RESULTS (calculated via Gated SPECT) Stress Image LV EF (%): 54 Stress EDV (mL):155 TID: 1.08 Stress ESV (mL):72 FUNCTIONAL FINDINGS: There is normal left ventricular systolic function. IMPRESSIONS 1. Small area of ischemia seen in the left circumflex artery territory. Attenuation artifact can not be ruled out. 2. LV systolic function is normal Chirag Burciaga MD (Electronically Signed) Final Date: 28 November 2023 13:37 S
[2023-11-28] MEDS: regadenoson 0.4 Mg/5 ml Syringe 0.400000000000000022 MG IVP (08:50)
[2023-11-28 09:06] VITALS: BP 109/67; PULSE 74
== END 2023-11-28 07:19 | disposition home or self-care (01) ==
PROVIDERS: PCP Family Medicine; Visit Provider Internal Medicine
DX: R07.9 Chest pain, unspecified (principal)
CPT/HCPCS: 36415; 78452; 93017; 96374; A9500; J2785

== ENCOUNTER → 2023-12-11 14:08 | Outpatient (BNVA) | payer MEDICARE, SELFPAY | PROVIDERS: PCP Family Medicine; Visit Provider Internal Medicine | DX: I48.0 Paroxysmal atrial fibrillation (principal) | CPT/HCPCS: 99204 ==

== ENCOUNTER 2024-04-24 09:20 | Emergency (ER) | payer MEDICARE, SELFPAY ==
[2024-04-24] VITALS (11 sets, daily range): BP systolic 97–113; BP diastolic 62–72; PULSE 67–155; RESP 14–19; TEMP 36.8; O2SAT 93–97; BMI 35.4
--- NOTE | 2024-04-24 09:36 | XR_ITS ---
WS: [id number] PORTABLE CHEST HISTORY: dyspnea/cough COMPARISON: 11/25/2023 Lungs are clear and well expanded. No pleural effusion or pneumothorax. Cardiac size: Normal. Mediastinum/Aorta: Mild atherosclerosis aorta. No osseous abnormality seen. XR/XR chest 1V portable [id number] IMPRESSION: Unremarkable portable chest.
--- NOTE | 2024-04-24 09:37 | W.ED.ARRPALP ---
HPI - Arrhythmia/Palpitations General: Chief Complaint: Arrhythmia/Palpitations Stated Complaint: chest pain, heart palpitations, sweating Time Seen by Provider: 04/24/24 09:31 History of Present Illness: 68-year-old male presents to the emergency room with complaints of chest discomfort palpitations diaphoresis. 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 He is not having any chest discomfort at this time. He was rather diaphoretic initially when he first arrived that also started to subside. He is usually on digoxin and aspirin. He is not on any long-term anticoagulation. Review of Systems Const: Denies: fever(s) or chills Card: Reports: palpitations, irregular heart rhythm and dyspnea on exertion; Denies: chest pain, edema or swelling of feet/ankles Resp: Denies: dyspnea GI: Denies: abdominal pain : Denies: dysuria, urinary frequency or urinary urgency Musc: Denies: neck pain or back pain Skin/Breast: Denies: rash PFSH ED PFSH: Medical History Obesity Dyspnea Headache Hypotestosteronemia Atrial fibrillation Social History Smoking and tobacco/nicotine status: unknown if used tobacco/nicotine Quit status (tobacco/nicotine): considering quitting Second hand smoke exposure: Yes Household members: spouse Housing: House Physical Exam Const: GENERAL APPEARANCE: cooperative and comfortable ORIENTATION/CONSCIOUSNESS: Yes awake, Yes oriented to person, Yes oriented to place and Yes oriented to time HENMT: COMMON NORMALS: normocephalic, atraumatic and hearing grossly normal bilaterally HEAD & SCALP: normocephalic and atraumatic Resp: COMMON NORMALS: normal respiratory effort, No retractions, No use of accessory muscles and clear to auscultation bilaterally AUSCULTATION: clear to auscultation bilaterally Cardio: COMMON NORMALS: No murmurs present (Cardio) RATE: tachycardic RHYTHM: abnormal rhythm irregularly irregular GI: COMMON NORMALS: Soft to palpation and No hepatosplenomegaly present AUSCULTATION: Yes normoactive bowel sounds PALPATION: Yes Soft to palpation, No Tenderness to palpation present (GI), No Guarding due to palpation present (GI) and Yes No hepatosplenomegaly present Extremity: COMMON NORMALS: normal to inspection, capillary refill normal, no clubbing, cyanosis or edema, no calf tenderness and no pedal edema Neuro: SENSORIUM/ORIENTATION: Yes oriented to person, Yes oriented to place and Yes oriented to time Skin: COMMON NORMALS: no rashes or lesions noted GENERAL SKIN EXAM: no rashes or lesions noted Course Vital Signs: Vital signs: Vital Signs Temperature 98.2 F 04/24/24 09:25 Pulse Rate 74 04/24/24 13:00 Respiratory Rate 15 04/24/24 13:00 Blood Pressure 112/72 04/24/24 13:00 Pulse Oximetry 96 04/24/24 13:00 Oxygen Delivery Me thod Room Air 04/24/24 11:03 MDM - Arrhythmia/Palpitations Medical Decision Making Initially in A-fib with RVR responded to Cardizem then converted we are able to give him an oral dose of Cardizem and titrate him off over period of time labs reviewed no significant flighty. Suspect he may have some sleep apnea he is slightly polycythemic. And a slight anion gap he was given IV fluids he is feeling much better now that his rate is changed back to normal sinus rhythm. Discussed with him we will continue his digoxin he has been on Cardizem in the past has extended release Cardizem 120 mg tablets at home. Recommend he start those this afternoon and take daily. 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 His is an ICU nurse and will assist him. Discussed findings with him and his discharge home with medications as above. We did not send a prescription since he already has them at home he should contact van owner operator office to be seen early next week return if he has further problems Lab Data 04/24/24 09:35 04/24/24 09:35 Radiology Impressions Chest X-Ray 04/24/24 09:36 IMPRESSION: Unremarkable portable chest. Laboratory Results WBC 9.66 10^3/uL (3.29-11.43) 04/24/24 09:35 RBC 5.72 10^6/uL (3.85-5.65) H 04/24/24 09:35 Hgb 17.50 g/dL (11.27-16.99) H 04/24/24 09:35 Hct 52.9 % (37-53) 04/24/24 09:35 MCV 92.5 fl (82-101) 04/24/24 09:35 MCH 30.6 pg (27-33) 04/24/24 09:35 MCHC 33.1 g/dL (30-55) 04/24/24 09:35 RDW 13.5 % (12.1-15.1) 04/24/24 09:35 Plt Count 242 10^3/cmm (157-399) 04/24/24 09:35 MPV 9.9 fL (7.4-10.4) 04/24/24 09:35 Neut % (Auto) 73.5 % 04/24/24 09:35 Lymph % (Auto) 19.4 % 04/24/24 09:35 [place] % (Auto) 5.3 % 04/24/24 09:35 Eos % (Auto) 0.4 % 04/24/24 09:35 Baso % (Auto) 0.7 % 04/24/24 09:35 Neut # (Auto) 7.10 10^3/uL (1.8-7.7) 04/24/24 09:35 Lymph # (Auto) 1.9 10^3/uL (0.8-4.8) 04/24/24 09:35 [place] # (Auto) 0.5 10^3/uL (0.2-0.9) 04/24/24 09:35 Eos # (Auto) 0.0 10^3/uL (0.0-0.8) 04/24/24 09:35 Baso # (Auto) 0.1 10^3/uL (0.0-0.1) 04/24/24 09:35 Nucleated RBC % (auto) 0 % 04/24/24 09:35 Nucleated RBCs # 0.0 /100WBC 04/24/24 09:35 Sodium 138 mmol/L (136-145) 04/24/24 09:35 Potassium 4.2 mmol/L (3.5-5.1) 04/24/24 09:35 Chloride 101 mmol/L (98-107) 04/24/24 09:35 Carbon Dioxide 19 mmol/L (22-29) L 04/24/24 09:35 Anion Gap 22.2 (5-19) H 04/24/24 09:35 BUN 15 mg/dL (8-23) 04/24/24 09:35 Creatinine 0.9 mg/dL (0.7-1.2) 04/24/24 09:35 GFR Calculation 84.2 mL/min (90-130) L 04/24/24 09:35 Glucose 132 mg/dL (65-115) H 04/24/24 09:35 Calculated Osmolality 289 mOsm/kg (285-295) 04/24/24 09:35 Calcium 9.5 mg/dL (8.5-10.5) 04/24/24 09:35 Total Bilirubin 0.9 mg/dL (0.15-1.2) 04/24/24 09:35 AST 19 U/L (0-40) 04/24/24 09:35 ALT 18 U/L (0-41) 04/24/24 09:35 Alkaline Phosphatase 100 U/L (40-130) 04/24/24 09:35 Troponin T Baseline 13 ng/L (0-15) 04/24/24 09:35 Troponin T 120 Minute 18.76 ng/L (0-15) H 04/24/24 12:09 Delta Troponin T 5.76 ABS# (0-10) 04/24/24 12:09 Total Protein 7.4 g/dL (6.6-8.7) 04/24/24 09:35 Albumin 4.7 g/dL (3.5-5.2) 04/24/24 09:35 Globulin 2.7 g/dL (1.3-4.6) 04/24/24 09:35 Digoxin 0.7 ng/mL (0.6-1.2) 04/24/24 09:35 All radiology interpretation(s) finalized by discharge Discharge Plan Discharge Patient Disposition: Home Clinical Impression: Atrial fibrillation with rapid ventricular response Condition: Stable Prescriptions: New Cardizem CD 120 mg capsule,extended release 24hr 120 mg PO DAILY Qty: 30 0RF No Action aspirin 325 mg capsule 325 mg PO DAILY Qty: 30 0RF sertraline 100 mg tablet 200 mg PO DAILY Rx Instructions: Y digoxin 125 mcg (0.125 mg) tablet See Rx Instructions .ROUTE .COMPLEX Rx Instructions: TAKE 1 TABLET BY MOUTH ON SUNDAY, SUNDAY, AND SUNDAY. tadalafil 10 mg tablet See Rx Instructions .ROUTE .COMPLEX Rx Instructions: TAKE 1 TABLET BY MOUTH EVERY 3 DAYS NEEDED FOR SEXUAL ACTIVITY. Discharge Orders: Discharge ED (Routine); Ordered 04/24/24 Ordered By: Vamshi Polo Referrals: Domingo Mcclure MD [Primary Care Provider] - Discharge Diet: As Directed Discharge Activity: Resume usual activity Patient Instructions: Opioid Safety, Pain Management Activity Restrictions/Additional Instructions: Thank you for choosing [facility] for your healthcare needs today. It is very important that you follow up as instructed or that you return to the Emergency Department should you have concerns or if your condition changes or worsens in any way. You were seen today with A-fib with ventricular response your digoxin level was in acceptable range. Your heart rate did require IV medications for a brief time but were able to get your rate converted back to normal sinus rhythm with IV medications. While you were given a oral dose of the same medication recommend that you start Cardizem CD 120 mg once daily starting late this afternoon and then daily. You should follow-up with your van owner operator within the next week. Return if you have further symptoms. Coding Level of Care Code ED Wiping Rag Washer for Stacy Stanley
[2024-04-24 09:46] LABS: Basophils # 0.1 10^3/uL (0.0-0.1); Basophils % 0.7 %; Eosinophils % 0.4 %; Hematocrit 52.9 % (37-53); Lymphocytes # 1.9 10^3/uL (0.8-4.8); Lymphocytes % 19.4 %; Mean Corpuscular HGB Conc 33.1 g/dL (30-55); Mean Corpuscular Hemoglobin 30.6 pg (27-33); Mean Corpuscular Volume 92.5 fl (82-101); Mean Platelet Volume 9.9 fL (7.4-10.4); Monocytes # 0.5 10^3/uL (0.2-0.9); Monocytes % 5.3 %; Neutrophils % 73.5 %; Nucleated Red Blood Cells % 0 %; Platelet Count 242 10^3/cmm (157-399); Red Blood Count 5.72 10^6/uL (3.85-5.65); Red Cell Distribution Width 13.5 % (12.1-15.1); White Blood Count 9.66 10^3/uL (3.29-11.43)
[2024-04-24] MEDS: dilTIAZem 5 mg/mL SDV 5 mL 20 MG IVP (09:49)
--- NOTE | 2024-04-24 09:49 | ECG_ITS ---
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 Measurements Intervals [place] Rate: 167 P: 0 RI: 0 QRS: 264 QRSD: 147 T: 46 QT: 305 QTc: 509 Interpretive Statements ATRIAL FIBRILLATION WITH RAPID VENTRICULAR RESPONSE WITH ABERRANT CONDUCTION OR VENTRICULAR PREMATURE COMPLEXES RIGHT AXIS DEVIATION [QRS AXIS > 100] RIGHT BUNDLE BRANCH BLOCK [120+ ms QRS DURATION, UPRIGHT V1, 40+ ms S IN I/aVL/V4/V5/V6] CRITICAL TEST RESULT Compared to ECG 11/25/2023 20:20:26 Ventricular premature complex(es) now present Aberrant conduction of supraventricular beat(s) now present Right-axis deviation now present Sinus rhythm no longer present Indeterminate axis no longer present Electronically Signed On 04-25-2024 0:53:06 CDT by Ana Rosa Eastman M.D. [id number]
[2024-04-24] MEDS: dilTIAZem 100 MG in sodium chloride 0.9% (add-van) 100 ML IV (09:51)
[2024-04-24 10:08] LABS: Troponin(5th) Baseline 13 ng/L (0-15)
[2024-04-24 10:17] LABS: Digoxin 0.7 ng/mL (0.6-1.2)
[2024-04-24 10:25] LABS: Albumin Level 4.7 g/dL (3.5-5.2); Alkaline Phosphatase 100 U/L (40-130); Blood Urea Nitrogen 15 mg/dL (8-23); Calcium 9.5 mg/dL (8.5-10.5); Carbon Dioxide 19 mmol/L (22-29); Chloride 101 mmol/L (98-107); Creatinine Clr Calc Pharmacy 111.9743; Globulin 2.7 g/dL (1.3-4.6); Glomerular Filtration Rate 84.2 mL/min (90-130); Glucose 132 mg/dL (65-115); Osmolality Calculated 289 mOsm/kg (285-295); Sodium 138 mmol/L (136-145); Total Bilirubin 0.9 mg/dL (0.15-1.2); Total Protein 7.4 g/dL (6.6-8.7)
[2024-04-24 10:31] LABS: Alanine Aminotransferase 18 U/L (0-41); Anion Gap 22.2 (5-19); Aspartate Amino Transferase 19 U/L (0-40); Potassium 4.2 mmol/L (3.5-5.1)
[2024-04-24] MEDS: dilTIAZem 60 mg Tablet PO (11:02)
--- NOTE | 2024-04-24 11:48 | ECG_ITS ---
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 Measurements Intervals [place] Rate: 71 P: 47 CO: 159 QRS: -49 QRSD: 148 T: 39 QT: 402 QTc: 438 Interpretive Statements SINUS RHYTHM LEFT AXIS DEVIATION [QRS AXIS < -30] RIGHT BUNDLE BRANCH BLOCK [120+ ms QRS DURATION, UPRIGHT V1, 40+ ms S IN I/aVL/V4/V5/V6] Compared to ECG 04/24/2024 09:49:36 Left-axis deviation now present Atrial fibrillation no longer present Ventricular premature complex(es) no longer present Aberrant conduction of supraventricular beat(s) no longer present Right-axis deviation no longer present Electronically Signed On 04-25-2024 1:05:04 CDT by Ana Rosa Eastman M.D. [id number]
[2024-04-24 12:31] LABS: Troponin 5 2HR 18.76 ng/L (0-15); Troponin 5 2HR Delta 5.76 ABS# (0-10)
== END 2024-04-24 13:26 | disposition home or self-care (01) ==
PROVIDERS: Emergency Provider Family Medicine; PCP Family Medicine
DX: I48.20 Chronic atrial fibrillation, unspecified (principal); Z79.82 Long term (current) use of aspirin; Z77.22 Contact with and (suspected) exposure to environmental tobacco smoke (acute) (chronic)
CPT/HCPCS: 36415; 71045; 80053; 80162; 84484; 85025; 93005; 96365; 96366; 99285; J3490

== ENCOUNTER → 2024-10-30 09:23 | Outpatient (BNVA) | payer MEDICARE, SELFPAY | PROVIDERS: PCP Family Medicine; Visit Provider Family Medicine | DX: R73.9 Hyperglycemia, unspecified (principal); E34.9 Endocrine disorder, unspecified; I48.91 Unspecified atrial fibrillation; R53.1 Weakness | CPT/HCPCS: 80053; 82607; 83036; 84403; 84443; 85025 ==

== ENCOUNTER → 2025-01-07 12:46 | Outpatient (BNVA) | payer MEDICARE, SELFPAY | PROVIDERS: PCP Family Medicine; Visit Provider Student in an Organized Health Care Education/Training Program | DX: G56.02 Carpal tunnel syndrome, left upper limb (principal); M18.12 Unilateral primary osteoarthritis of first carpometacarpal joint, left hand | CPT/HCPCS: 20600; 73110; 99204; J3301; J3490 ==

== ENCOUNTER 2025-01-07 15:39 | Outpatient (CLI) | payer MEDICARE, SELFPAY | END 2025-01-07 15:40 | disposition home or self-care (01) | LOC: SPT 15:40 | PROVIDERS: PCP Family Medicine; Visit Provider Student in an Organized Health Care Education/Training Program | DX: Z46.89 Encounter for fitting and adjustment of other specified devices (principal); M18.12 Unilateral primary osteoarthritis of first carpometacarpal joint, left hand | CPT/HCPCS: L3924 ==

== ENCOUNTER → 2025-03-05 10:26 | Outpatient (BNVA) | payer MEDICARE, SELFPAY | PROVIDERS: PCP Family Medicine; Visit Provider Family Medicine | DX: R53.83 Other fatigue (principal); R06.00 Dyspnea, unspecified; J06.9 Acute upper respiratory infection, unspecified; R07.9 Chest pain, unspecified; I48.91 Unspecified atrial fibrillation | CPT/HCPCS: 80053; 82607; 83880; 84443; 85025; 86140; 86618; 86666; 86757 ==

== ENCOUNTER → 2025-04-07 07:33 | Outpatient (BNVA) | payer MEDICARE, SELFPAY | PROVIDERS: PCP Family Medicine; Visit Provider Family Medicine | DX: R35.1 Nocturia (principal) | CPT/HCPCS: 84153 ==